=== PATIENT | male | born 1970 | race Caucasian/White ===

== ENCOUNTER 2020-03-29 10:28 | Emergency (ER) | payer SELFPAY ==
[2020-03-29] VITALS (10 sets, daily range): BP systolic 113–139; BP diastolic 79–85; PULSE 55–72; RESP 16–28; TEMP 36.4–37.2; O2SAT 99–100
--- NOTE | 2020-03-29 10:32 | ED_ITS ---
Documented by User: REESE Reyes 03/29/20 10:59 HPI - Extremity Injury (Upper) General: Chief Complaint: Extremity Injury, Upper Stated Complaint: TRAUMA TO RT HAND Time Seen by Provider: 03/29/20 10:29 [facility] ED PFSH: Medical History Asthma Social History Smoking and tobacco status: former smoker Alcohol intake: current Alcohol intake frequency: holidays/special occasions only Course Vital Signs: Vital signs: Vital Signs Temperature 99.0 F 03/29/20 14:01 Pulse Rate 72 03/29/20 14:01 Respiratory Rate 18 03/29/20 14:01 Blood Pressure 129/81 03/29/20 14:01 Pulse Oximetry 99 03/29/20 14:01 MDM - Extremity Injury (Upper) MDM Narrative: Medical decision making narrative: I had initially started a chart on patient and saw him briefly before Dr. Hooks came in and assumed care. I had no active participation in pts evaluation, work up, or overall care from the ED-ES Lab Data: Labs: Lab Results 03/29/20 03/29/20 Range/Units 10:57 10:57 WBC 7.7 (4.0-10.0) 10^3/ uL RBC 5.41 H (4.1-5.3) 10^6/u L Hgb 16.3 (11.7-16.6) g/dL Hct 48.2 (42.0-52.0) % MCV 89.1 (80-94) fL MCH 30.1 (28.0-34.0) pg MCHC 33.8 (30.0-36.0) g/dL RDW 14.1 (12.1-15.1) % Plt Count 221 (130-400) 10^3/c mm MPV 11.5 H (7.4-10.4) fL Neut % (Auto) 39.7 % Lymph % (Auto) 45.2 % [place] % (Auto) 11.8 % Eos % (Auto) 2.1 % Baso % (Auto) 0.9 % Neut # (Auto) 3.1 (1.8-7.7) 10^3/u L Lymph # (Auto) 3.5 (0.8-4.8) 10^3/u L [place] # (Auto) 0.9 (0.2-0.9) 10^3/u L Eos # (Auto) 0.2 (0.0-0.8) 10^3/u L Baso # (Auto) 0.1 (0.0-0.1) 10^3/u L Nucleated RBC % (a uto) 0 % Nucleated RBCs # 0.0 /100WBC Sodium 133 L (136-145) mmol/L Potassium 3.2 L (3.5-5.1) mmol/L Chloride 97 L (98-107) mmol/L Carbon Dioxide 20 L (22-29) mmol/L Anion Gap 19.2 H (5-19) BUN 9 (6-20) mg/dL Creatinine 0.9 (0.7-1.2) mg/dL GFR Calculation 89.3 L (90-130) mL/min Glucose 143 H (65-115) mg/dL Calculated Osmolal ity 274 L (285-295) mOsm/k g Calcium 9.9 (8.5-10.5) mg/dL Discharge Plan Discharge Patient Disposition: Home, Self-Care Clinical Impression: Fracture of right ulnar styloid, Laceration of hand Condition: Stable Prescriptions: New hydrocodone-acetaminophen 5-325 mg tablet 1 tab PO Q6H PRN (Reason: pain) Qty: 20 RF: 0 Hold Instructions: Resume on 04/03/20. amoxicillin-pot clavulanate [Augmentin] 875-125 mg tablet 1 tab PO BID 5 Days Qty: 10 RF: 0 No Action famotidine 20 mg Tablet 20 mg PO DAILY RF: 0 Probiotic Acidophilus 1.5 mg (250 million cell) Capsule 1.5 mg PO DAILY RF: 0 oxycodone-acetaminophen 5-325 mg tablet 1 tab PO Q4H PRN (Reason: pain) Qty: 40 RF: 0 Discharge Orders: Discharge Order (Routine); Ordered 03/29/20 Ordered By: Remy Hooks Referrals: Marlon Rice DO [Physician] - Discharge Diet: Usual diet Discharge Activity: Increase activity as tolerated Discharge Date/Time: 03/29/20 14:16 Coding Level of Care Code ED Overseamer for Chg Fwd Exam Comprehensive Documented by User: Remy Hooks DO 04/01/20 12:58 HPI - Extremity Injury (Upper) General: Chief Complaint: Extremity Injury, Upper Stated Complaint: TRAUMA TO RT HAND Time Seen by Provider: 03/29/20 10:29 History of Present Illness: HPI narrative: 50-year-old male presents to the emergency room was trauma to his right hand. He was unloading a dumpster dumpster evidently slipped out of the rail and hit him in the head knocked him off balance and his hand got caught between a dumpster and another solid object as it felt there really get it off of his hand he has a couple of lacerations in the dorsum of the hand is unable to extend at the wrist or extend the third and fourth fingers. He is uncertain of his last tetanus shot he denies any other injuries. MD complaint: injury to: right Onset (ago): minute(s) Other Extremity Injury: Right: hand Other injuries: head Handedness: right Place: work Severity: moderate Relieving factors: none and immobilization Exacerbating factors: none Review of Systems Const: Denies: fever(s), chills, body aches, change in appetite, fatigue or malaise ENMT: Denies: throat pain, ear or mastoid pain, nasal discharge or nasal congestion Card: Denies: chest pain, edema, dyspnea on exertion or orthopnea Resp: Denies: dyspnea, productive cough or non-productive cough GI: Denies: abdominal pain, nausea, vomiting, hematemesis, coffee ground emesis, diarrhea, constipation, bloating, hematochezia or melena : Denies: flank pain, dysuria, urinary frequency or urinary urgency Skin/Breast: Denies: rash or pruritus PFSH ED PFSH: Medical History Asthma Social History Smoking and tobacco status: former smoker Alcohol intake: current Alcohol intake frequency: holidays/special occasions only Physical Exam Const: COMMON NORMALS: no acute distress GENERAL APPEARANCE: cooperative and comfortable ORIENTATION/CONSCIOUSNESS: Yes awake, Yes oriented to person, Yes oriented to place and Yes oriented to time HENMT: COMMON NORMALS: normocephalic, atraumatic, hearing grossly normal bilaterally, external ears normal, EAC's normal, TM's normal bilaterally, Normal nasal mucous membranes and turbinates present, moist oral mucous membranes and oropharynx normal HEAD & SCALP: normocephalic and atraumatic NOSE: Normal nasal mucous membranes and turbinates present EXTERNAL EAR: Yes external ears normal EXTERNAL AUDITORY CANAL: EAC's normal TYMPANIC MEMBRANE: TM's normal bilaterally Eye: COMMON NORMALS: Equal, round and reactive pupils present, EOMs intact bilaterally, conjunctivae normal and no scleral icterus CONJUNCTIVA: Yes conjunctivae normal PUPIL: Yes Equal, round and reactive pupils present Neck/C-Spine: COMMON NORMALS: full ROM, no lymphadenopathy, supple and no JVD Lymph: LYMPHATIC: no lymphadenopathy noted and no lymphedema noted Resp: COMMON NORMALS: normal respiratory effort, No retractions, No use of accessory muscles and clear to auscultation bilaterally AUSCULTATION: clear to auscultation bilaterally Cardio: COMMON NORMALS: no JVD, regular rate, regular rhythm and No murmurs present (Cardio) RATE: regular rate RHYTHM: regular rhythm GI: COMMON NORMALS: Soft to palpation and No hepatosplenomegaly present AUS CULTATION: Yes normoactive bowel sounds PALPATION: Yes Soft to palpation, No Tenderness to palpation present (GI), No Guarding due to palpation present (GI) and Yes No hepatosplenomegaly present Extremity: NARRATIVE EXTREMITY EXAM: Patient has open laceration exposing some of the tendons in the dorsum of the right hand. He is unable to extend the third or fourth fingers and unable to extend at the wrist. He has a laceration at the metacarpal carpal joint as well as at the wrist joint itself there is some deformity of the distal forearm. Neuro: SENSORIUM/ORIENTATION: Yes oriented to person, Yes oriented to place and Yes oriented to time Skin: COMMON NORMALS: no rashes or lesions noted GENERAL SKIN EXAM: no rashes or lesions noted Procedures Laceration Laceration 1: Site: upper extremity and hand (Dorsum of the right hand extending from the fourth this second metacarpals at approximately the metacarpal carpal junction. None of the underlying tendons are exposed they are all intact patient able to extend fingers.) Side (If applicable): right Size (cm): 5 Description: linear Depth: simple, single layer Local Anesthetic: lidocaine 1% and with epi Amount of anesthesia used (mL): 3 Pre-repair: wound explored, irrigated extensively and deep structures intact Skin layer closed with: nylon Size (cm): 4-0 Technique: running Laceration 2: Site: upper extremity and hand Side (If applicable): right Size (cm): 3 Description: linear Depth: simple, single layer Local Anesthetic: lidocaine 1% and with epi Amount of anesthesia used (mL): 2 Skin layer closed with: nylon Size (cm): 4-0 Technique: running Course Vital Signs: Vital signs: Vital Signs Temperature 99.0 F 03/29/20 14:01 Pulse Rate 72 03/29/20 14:01 Respiratory Rate 18 03/29/20 14:01 Blood Pressure 129/81 03/29/20 14:01 Pulse Oximetry 99 03/29/20 14:01 MDM - Extremity Injury (Upper) MDM Narrative: Medical decision making narrative: Distal ulnar fracture. Lacerations were repaired patient was splinted and left here went directly to Ortho clinic they will provide definitive fracture care at the clinic discussed with the on-call orthopedist. Lab Data: Labs: Lab Results 03/29/20 03/29/20 Range/Units 10:57 10:57 WBC 7.7 (4.0-10.0) 10^3/ uL RBC 5.41 H (4.1-5.3) 10^6/u L Hgb 16.3 (11.7-16.6) g/dL Hct 48.2 (42.0-52.0) % MCV 89.1 (80-94) fL MCH 30.1 (28.0-34.0) pg MCHC 33.8 (30.0-36.0) g/dL RDW 14.1 (12.1-15.1) % Plt Count 221 (130-400) 10^3/c mm MPV 11.5 H (7.4-10.4) fL Neut % (Auto) 39.7 % Lymph % (Auto) 45.2 % [place] % (Auto) 11.8 % Eos % (Auto) 2.1 % Baso % (Auto) 0.9 % Neut # (Auto) 3.1 (1.8-7.7) 10^3/u L Lymph # (Auto) 3.5 (0.8-4.8) 10^3/u L [place] # (Auto) 0.9 (0.2-0.9) 10^3/u L Eos # (Auto) 0.2 (0.0-0.8) 10^3/u L Baso # (Auto) 0.1 (0.0-0.1) 10^3/u L Nucleated RBC % (a uto) 0 % Nucleated RBCs # 0.0 /100WBC Sodium 133 L (136-145) mmol/L Potassium 3.2 L (3.5-5.1) mmol/L Chloride 97 L (98-107) mmol/L Carbon Dioxide 20 L (22-29) mmol/L Anion Gap 19.2 H (5-19) BUN 9 (6-20) mg/dL Creatinine 0.9 (0.7-1.2) mg/dL GFR Calculation 89.3 L (90-130) mL/min Glucose 143 H (65-115) mg/dL Calculated Osmolal ity 274 L (285-295) mOsm/k g Calcium 9.9 (8.5-10.5) mg/dL Discharge Plan Discharge Patient Disposition: Home, Self-Care Clinical Impression: Fracture of right ulnar styloid, Laceration of hand Condition: Stable Prescriptions: New hydrocodone-acetaminophen 5-325 mg tablet 1 tab PO Q6H PRN (Reason: pain) Qty: 20 RF: 0 Hold Instructions: Resume on 04/03/20. amoxicillin-pot clavulanate [Augmentin] 875-125 mg tablet 1 tab PO BID 5 Days Qty: 10 RF: 0 No Action famotidine 20 mg Tablet 20 mg PO DAILY RF: 0 Probiotic Acidophilus 1.5 mg (250 million cell) Capsule 1.5 mg PO DAILY RF: 0 oxycodone-acetaminophen 5-325 mg tablet 1 tab PO Q4H PRN (Reason: pain) Qty: 40 RF: 0 Discharge Orders: Discharge Order (Routine); Ordered 03/29/20 Ordered By: Remy Hooks Referrals: Marlon Rice DO [Physician] - Discharge Diet: Usual diet Discharge Activity: Increase activity as tolerated Discharge Date/Time: 03/29/20 14:16 Coding Level of Care Code ED Overseamer for Chg Fwd Exam Comprehensive
--- NOTE | 2020-03-29 10:43 | XR_ITS ---
WS: [id number] RIGHT WRIST: 3 VIEW(S) TECHNIQUE: PA, oblique and lateral. HISTORY: trauma COMPARISON: None available. Acute oblique fracture through the distal ulna metadiaphysis. Vertical fracture probably extends to t he articular surface distally. Additional nondisplaced fracture through the base of the ulnar styloid . Medial displacement of the distal fracture by 4.8 mm. No radial fracture. No joint space abnormality. Large amount of soft tissue edema. XR/XR wrist RT min 3V* [id number] IMPRESSION: Comminuted, acute oblique fracture of the distal ulna with articular extension. No ulnar fracture.
--- NOTE | 2020-03-29 10:43 | XR_ITS ---
WS: [id number] RIGHT HAND: 3 VIEW(S) TECHNIQUE: PA, oblique and lateral. HISTORY: trauma COMPARISON: None available. Comminuted fracture in the distal ulna is again identified. No hand fracture. There is extensive soft tissue injury over the dorsal surface of the hand. XR/XR hand RT min 3V* [id number] IMPRESSION: 1. Extensive soft tissue injury along the dorsal surface of the hand. 2. No healing fracture appreciated. 3. Comminuted fracture distal ulna.
[2020-03-29] MEDS: morphine 4 mg/mL SDV 1 mL IVP ×4 (10:52→13:34)
[2020-03-29] MEDS: ondansetron 2 mg/ML SDV 2 mL 4 MG IVP (10:52)
[2020-03-29] MEDS: ceFAZolin 1,000 MG in sodium chloride 0.9% (plus) 50 ML 100 MG IV (10:53)
[2020-03-29] MEDS: sodium chloride 0.9% 500 ML 999 ML IV (10:59)
[2020-03-29] MEDS: tetanus-dipt-pertussis 0.5 mL SDV IM (11:02)
[2020-03-29 11:21] LABS: Basophils # 0.1 10^3/uL (0.0-0.1); Basophils % 0.9 %; Eosinophils # 0.2 10^3/uL (0.0-0.8); Eosinophils % 2.1 %; Hematocrit 48.2 % (42.0-52.0); Hemoglobin 16.3 g/dL (11.7-16.6); Lymphocytes # 3.5 10^3/uL (0.8-4.8); Lymphocytes % 45.2 %; Mean Corpuscular HGB Conc 33.8 g/dL (30.0-36.0); Mean Corpuscular Hemoglobin 30.1 pg (28.0-34.0); Mean Corpuscular Volume 89.1 fL (80-94); Mean Platelet Volume 11.5 fL (7.4-10.4); Monocytes # 0.9 10^3/uL (0.2-0.9); Monocytes % 11.8 %; Neutrophils # 3.1 10^3/uL (1.8-7.7); Neutrophils % 39.7 %; Nucleated Red Blood Cells % 0 %; Platelet Count 221 10^3/cmm (130-400); Red Blood Count 5.41 10^6/uL (4.1-5.3); Red Cell Distribution Width 14.1 % (12.1-15.1); White Blood Count 7.7 10^3/uL (4.0-10.0)
[2020-03-29 11:28] LABS: Anion Gap 19.2 (5-19); Blood Urea Nitrogen 9 mg/dL (6-20); Calcium 9.9 mg/dL (8.5-10.5); Carbon Dioxide 20 mmol/L (22-29); Chloride 97 mmol/L (98-107); Glomerular Filtration Rate 89.3 mL/min (90-130); Glucose 143 mg/dL (65-115); Osmolality Calculated 274 mOsm/kg (285-295); Potassium 3.2 mmol/L (3.5-5.1); Sodium 133 mmol/L (136-145)
--- NOTE | 2020-03-29 13:14 | CT_ITS ---
WS: [id number] CT HEAD NONCONTRAST HISTORY: trauma TECHNIQUE: Contiguous axial imaging performed through the brain in 2.5 mm imaging. Bone and soft tiss ue windows. Sagittal and coronal reformats reviewed. All CT scans at [facility] use at ast one of these dose optimization techniques: automated exposure control; mA and/or kV adjustment pe r patient size (includes targeted exams where dose is matched to clinical indication); or iterative r econstruction. DLP: 853.71 mGy.cm COMPARISON: None available. No acute intracranial hemorrhage, midline shift or mass effect. No atrophy or prior infarcts or herniation. Ventricles: Normal size with no hydrocephalus. Paranasal sinuses: Moderate mucoperiosteal thickening in the ethmoid air cells with small amount of m ucoperiosteal thickening in the LEFT posterior sphenoid sinus. Mastoid air cells: Well pneumatized. Calvarium and scalp: Skull is intact with no soft tissue edema or swelling. CT/CT head wo con* [id number] IMPRESSION: Negative head CT.
--- NOTE | 2020-03-30 11:35 | DCPLANNER ---
business excellence manager was asked to schedule a follow up appointment for patient with ortho. business excellence manager spoke Pat, was told that patient is to go to the ortho clinic when he is discharged from the ED. business excellence manager spoke with patient and informed patient that as soon as he is discharged from the ED, he is to go to the ortho clinic.
== END 2020-03-29 14:16 | disposition home or self-care (01) ==
PROVIDERS: Emergency Provider Family Medicine
DX: S52.611A Displaced fracture of right ulna styloid process, initial encounter for closed fracture (principal); S61.411A Laceration without foreign body of right hand, initial encounter; W23.0XXA Caught, crushed, jammed, or pinched between moving objects, initial encounter; Z87.891 Personal history of nicotine dependence; J45.909 Unspecified asthma, uncomplicated; Z23 Encounter for immunization
CPT/HCPCS: 12004; 12345; 29125; 70450; 73110; 73130; 80048; 85025; 90715; 96365; 96375; 96376; 99283; 99284; J0690; J2001; J2270; J2405; J7040

== ENCOUNTER 2020-03-31 06:21 | Day surgery (SDC) | payer SELFPAY ==
[2020-03-30 11:40] VITALS: BMI 21.9
[2020-03-30 12:40] VITALS: BMI 21.9
--- NOTE | 2020-03-31 | SCC_ITS ---
Procedure Done: Open reduction and internal fixation right distal ulnar fracture with plate and screws 13.4 seconds of fluoroscopic guidance, for a cumulative dose of 0.49 mGy, was provided to Dr. Rice by the radiology department. C-arm images of the RIGHT wrist were saved for the patient's permanent record. [facility]OSPITALGlendy
--- NOTE | 2020-03-31 | XR_ITS ---
WS: [id number] C-ARM RADIOGRAPHS RIGHT WRIST; 4 IMAGES HISTORY: ORIF RIGHT WRIST COMPARISON: 03/29/2020 Distal plate and screw fixation of the ulnar fracture which is now normal alignment. XR/XR wrist RT 2V [id number] IMPRESSION: Intraoperative ORIF distal ulnar fracture in good alignment.
[2020-03-31 06:33] VITALS: BP 123/87; PULSE 88; RESP 18; TEMP 37; O2SAT 98
[2020-03-31] MEDS: sodium chloride 0.9% 1,000 ML 30 ML IV (06:53)
--- NOTE | 2020-03-31 07:08 | ANES.PREANE2 ---
Pre-Anesthetic Assessment Pre-Anesthetic Assessment: Height/Weight: Height 1.83 m Weight 73.482 kg Temp Pulse Resp BP Pulse Ox 98.6 F 88 18 123/87 98 03/31/20 06:33 03/31/20 06:33 03/31/20 06:33 03/31/20 06:33 03/31/20 06:33 Preop Diagnosis: left distal ulna fracture Proposed Procedure: Operation Date: 03/31/20 08:05 Proposed Procedures p ORIF Distal Ulna Fracture 78441 S52.601A(Right) - Marlon Rice DO Familial anesthetic complications: None Was Beta Samir taken within 24 hours: N/A Last intake: Intake Last Liquid Date 03/30/20 Last Liquid Time 23:30 Social: Social History: No alcohol and No tobacco Exam: Pre-Anes Outpt Exam: alert, oriented x 3, clear to auscultation bilaterally and regular rate & rhythm Airway: Cervical ROM: WNL MP: 2 Additional comments: missing Pulmonary: Pulmonary: Asthma (mild) CV/HEM: CV/HEM: None reported : : None reported Hepatic: Hepatic: None reported GI: GI: GERD Metabolic: Metabolic: None reported Musc/skel: Comments: ulnar fracture Neuropsych: Neuropsych: Neuropathy (Tingling in L arm (pins and needles) since he broke arm - I've informed patient he has higher risk of nerve damage associated with block due to preexisting neuropathy. He would like to proceed with block) Anesthetic Plan: ASA status: 2 Anesthesia: General and Regional (specify below) Risk of > 500 ml blood loss (7ml/kg in children): No Meds/Allergies Current Medications: Current Medications Generic Name Dose Route Start Last Admin Trade Name Freq PRN Reason Stop Dose Admin Sodium Chloride 1,000 mls @ 30 ml s/hr 03/31/20 06:45 03/31/20 06:53 Sodium Chloride 0.9% IV 04/01/20 06:44 30 mls/hr .Q24H RAÚL Administration PFSH Anesthesia PFSH: Medical History Asthma Social History Smoking and tobacco status: former smoker Alcohol intake: current Alcohol intake frequency: holidays/special occasions only Data Anesthesia Cardiac Studies: No Data to Display
--- NOTE | 2020-03-31 07:31 | P.OP_ITS ---
Operative Report Date of procedure: March 31, 2020 Pre-op Diagnosis: Closed, displaced right distal ulnar fracture Post-op diagnosis: same Post-op Findings: Satisfactory reduction and placement of implants Procedure Done: Open reduction and internal fixation right distal ulnar fracture with plate and screws Implants: right distal ulna fracture with plate and screws Pathology: none sent Surgeon: Marlon Rice Anesthesia: General and Nerve Block Estimated blood loss (mL): 5 Tourniquet time (min): 69 (250 mmHg pressure) Complications: None Findings: Satisfactory reduction of fracture and placement of implants Condition: stable Disposition: PACU Brief History: 50-year-old white male who sustained a closed fracture of the right distal ulna when he was pinned by a dumpster. He sustained lacerations to the dorsum of his hand as well as abrasions. His wounds were treated in the emergency room closed and dressed referred for orthopedic consultation. Patient was seen in consultation was recommended he undergo open external fixation of his right distal ulna fracture. Risks of surgery include are not limited to: Infection, nerve/blood vessel/injury, potential nonhealing of the fractures or complications from hardware. Medical complications can include blood clots, heart attack, stroke risk up to including . All questions were answered patient is agreeable to proceed with surgery. Procedure: 1.5 g cefuroxime The patient was identified. Surgical site was signed. Surgical permit was signed. The patient received 1.5 g of Zinacef intravenously for surgical prop hylaxis. The patient received a preoperative right-sided axillary nerve block for postoperative analgesia. The patient was taken to the operating room. The patient was placed supine on the operating room table. The patient was placed under general anesthesia without difficulty. A tourniquet was placed about the upper aspect of the right upper extremity. Right upper extremity is in sterilely prepped and draped usual fashion. A timeout was performed. The operative limb was exsanguinated using Esmarch bandage and tourniquet inflated to 250 motion pressure. Incisions made along the ulnar aspect of the distal right forearm going longitudinally over the underlying shaft of the ulna. Occur the incision dorsally to the ulnar head and then backed out along the course of the extensor carpi ulnaris tendon distal to the ulnar styloid. Full-thickness skin flaps were made. Crossing veins were coagulated with electrocautery. Then incised the forearm fascia followed by incising the tendon sheath the extensor carpi ulnaris tendon and then displace the tendon out of the tendon sheath. The fracture site of the distal ulnar shaft was identified. We place 10 pounds of traction via finger traps on the right long and ring fingers. The fracture site was curetted of soft tissue and hematoma. Fracture site was then reduced using bone holding forceps and provisional fixation using a K wire from the dorsal surface of the proximal fragment into the volar aspect the distal fragment was performed. I then placed an interfragmentary screw paralleling the previously placed K wire to stabilize the fracture. K wire was removed. We then used a 6- hole plate and positioned this over the fracture site and held provisionally in place with K wires. A cortical screw was placed in the proximal fragment in the plate was compressed down to the shaft of the ulna. Then placed the distal locking screws and proximal locking screws to stabilize the fracture. Fluoroscopic imaging demonstrated satisfactory reduction of the fracture and placement of implants. The wound was irrigated with Betadine-containing saline solution followed by antibiotic containing saline solution. The extensor carpi ulnaris tendon sheath was closed with interrupted sutures of 4-0 Monocryl. Then closed in layers with 4-0 nylon sutures on skin. Antibiotic ointment was applied to the incision site followed by application of sterile dressings the patient was then placed in a short arm plaster splint was made Devyn overwrap. The tourniquet was deflated. The patient was aroused from anesthesia. He was taken recovery room. He tolerated surgery well. All counts are correct.
--- NOTE | 2020-03-31 07:31 | W.PM.OPSUD ---
Surgery/Procedure H&P Update DATE OF PROCEDURE: March 31, 2020 DATE H&P PERFORMED: 03/29/20 H&P UPDATE INFORMATION: I have reviewed H&P completed within last 30 days and I have examined patient prior to procedure PREOP DIAGNOSIS: left distal ulna fracture PRIMARY INDICATION FOR PROCEDURE: displaced fx PLANNED PROCEDURE: Operation Date: 03/31/20 08:05 Proposed Procedures p ORIF Distal Ulna Fracture 21322 S52.601A(Right) - Marlon Rice DO
[2020-03-31] MEDS: midazolam 1 mg/mL INJ 2 mL 2 MG IVP (07:34)
--- NOTE | 2020-03-31 07:34 | SUR.OPER ---
Nerve block on the Lt shoulder completed by Dr. Nova with assistance by myself. I gave the pt 2mg Versed prior to the nerve block.
--- NOTE | 2020-03-31 07:54 | ANES.PROC ---
Anesthesia Procedures Procedure/Date: 03/31/20 Nerve Block ^: Nerve Block 1: Main Anesthesia: general anesthesia Time Out Performed: Yes Consent: requested by attending/covering physician, from patient, risks and benefits reviewed and patient agrees to proceed Nerve block location: axillary (+ Musculocutaneous (R)) Anesthesia monitors applied: pulse oximetry, BP cuff and oxygen Nerve block position: supine Anesthetic Used: ropivicaine 0.5% and with decadron (4 mg) Amount of anesthesia used (mL): 30 Ultrasound used to: recognize landmarks Interscalene/Femoral BLK: 2 stimuplex 22 g needle used for position and inplane approach, visualize local anesthetic spread and no vascular puncture identified Injection: neg aspiration of heme Patient Tolerated Procedure: well Complications: none
[2020-03-31] MEDS: sodium chloride 0.9% 1,000 ML 100 ML IV (08:30)
[2020-03-31] MEDS: cefUROXime 1,500 MG in sodium chloride 0.9% (plus) 50 ML 100 MG IV (09:01)
[2020-03-31 10:53] VITALS: BP 158/85; PULSE 92; RESP 16; TEMP 36.6; O2SAT 96
[2020-03-31 11:00] VITALS: BP 144/78; PULSE 86; RESP 20; O2SAT 95
[2020-03-31 11:05] VITALS: BP 149/88; PULSE 84; RESP 18; O2SAT 94
[2020-03-31 11:17] VITALS: BP 156/85; PULSE 83; RESP 18; TEMP 36.7; O2SAT 94
== END 2020-03-31 11:40 | disposition home or self-care (01) ==
PROVIDERS: Visit Provider Orthopaedic Surgery
PROC: (CPT 25545; principal; 2020-03-31 08:00)
DX: S52.601A Unspecified fracture of lower end of right ulna, initial encounter for closed fracture (principal); W23.0XXA Caught, crushed, jammed, or pinched between moving objects, initial encounter; K21.9 Gastro-esophageal reflux disease without esophagitis; Z87.891 Personal history of nicotine dependence
CPT/HCPCS: 25545; 12345; 73100; 76000; C1713; J0131; J0330; J0697; J1100; J1580; J2001; J2250; J2405; J2704; J2795; J3010; J3490; J7030

== ENCOUNTER → 2020-04-14 08:04 | Outpatient (BNVA) | payer SELFPAY | PROVIDERS: Visit Provider Orthopaedic Surgery | DX: S52.601A Unspecified fracture of lower end of right ulna, initial encounter for closed fracture (principal); W23.0XXA Caught, crushed, jammed, or pinched between moving objects, initial encounter; Z48.89 Encounter for other specified surgical aftercare | CPT/HCPCS: 73110 ==

== ENCOUNTER → 2020-05-12 10:00 | Outpatient (BNVA) | payer SELFPAY | PROVIDERS: Visit Provider Orthopaedic Surgery | DX: Z48.89 Encounter for other specified surgical aftercare (principal); S52.601A Unspecified fracture of lower end of right ulna, initial encounter for closed fracture; W23.0XXA Caught, crushed, jammed, or pinched between moving objects, initial encounter | CPT/HCPCS: 73110 ==

== ENCOUNTER → 2020-06-07 09:12 | Outpatient (BNVA) | payer SELFPAY | PROVIDERS: Visit Provider Orthopaedic Surgery | DX: S52.601A Unspecified fracture of lower end of right ulna, initial encounter for closed fracture (principal); Z48.89 Encounter for other specified surgical aftercare; W23.0XXA Caught, crushed, jammed, or pinched between moving objects, initial encounter | CPT/HCPCS: 73110 ==